=== PATIENT | female | born 1960 | race Caucasian/White ===

== ENCOUNTER → 2020-11-04 | Outpatient (CLI) | payer BC, MEDICARE ==
[2020-11-04 15:50] LABS: Gliadin AB IgA, Deaminated NEGATIVE (NEGATIVE); Gliadin AB IgA, Unit 0.5 U/mL
[2020-11-04 15:51] LABS: Gliadin AB IgG, Deaminated NEGATIVE (NEGATIVE)
== END | disposition home or self-care (01) ==
LOC: LABWHC1 09:28
PROVIDERS: ATTEND Nurse Practitioner
DX: R19.7 Diarrhea, unspecified (principal)
CPT/HCPCS: 36415; 83516

== ENCOUNTER 2022-06-06 09:51 | Day surgery (SDC) | payer BC, MEDICARE ==
[2022-06-04 14:33] VITALS: BMI 20.5
[~2022-06-06 09:51] MED LIST: LACTATED RINGERS 1,000 ML IV SCH
[2022-06-06 10:35] VITALS: TEMP 97.8
[2022-06-06] MEDS ORDERED: PROPOFOL 10 MG/ML 20 ML VIAL IV ONE (12:08)
--- NOTE | 2022-06-06 12:22 | P.PCN ---
Date of Procedure: 06/06/22 Procedure(s) Performed: BRIEF HISTORY: Patient is a 62-year-old pleasant female scheduled for an elective colonoscopy as a part of evaluation of prior history of colon polyps. Last colonoscopy was 5 years ago. She also has been complaining of chronic diarrhea for the last 6 months before this with the bowel movements daily. PROCEDURE PERFORMED: Colonoscopy with random biopsies. PREOPERATIVE DIAGNOSIS: History Of colon polyps and chronic diarrhea. IV sedation per Anesthesia. PROCEDURE: After informed consent was obtained, the patient, was brought into the endoscopy unit. IV sedation was administered by Anesthesia under continuous monitoring. Digital rectal examination was normal. Initially the Olympus CF-160 flexible video colonoscope was then inserted in the rectum, gradually advanced into the cecum without any difficulty. Careful examination was performed as the scope was gradually being withdrawn. Ileocecal valve and the appendiceal orifice were visualized and appeared normal. Prep was excellent. Mucosa of the cecum, ascending colon, transverse colon, descending colon, sigmoid colon, and rectum appeared normal. At her sigmoid diverticulosis seen. Random biopsies were done from ascending and descending colon to rule out colonoscopy/collagenous colitis. Retroflexion was performed in the rectum and no lesions were seen. The patient tolerated the procedure well. IMPRESSION: Normal-appearing colon from rectum to cecum no evidence of colitis or colorectal neoplasia . Scattered sigmoid diverticulosis RECOMMENDATIONS: Findings of this examination were discussed with the patient is well as her family. She was advised to follow with the biopsy results and have a repeat screening colonoscopy in 10 years. Continue with [id number] antidiarrheal as needed for the chronic diarrhea..
[2022-06-06 12:53] VITALS: BP 134/73; PULSE 73; RESP 16
== END 2022-06-06 13:13 | disposition home or self-care (01) ==
LOC: ORWHC2ENDO 09:51
PROVIDERS: ATTEND Internal Medicine Gastroenterology
DX: Z12.11 Encounter for screening for malignant neoplasm of colon (principal); R19.7 Diarrhea, unspecified; I10 Essential (primary) hypertension; E78.5 Hyperlipidemia, unspecified; F12.10 Cannabis abuse, uncomplicated; K21.9 Gastro-esophageal reflux disease without esophagitis; Z79.899 Other long term (current) drug therapy; Z86.010 Personal history of colon polyps; Z79.82 Long term (current) use of aspirin; Z88.6 Allergy status to analgesic agent
CPT/HCPCS: 88305; 45380; J2704

== ENCOUNTER → 2023-10-22 | Outpatient (CLI) | payer MEDICARE, OTHER ==
--- NOTE | 2023-10-24 09:28 | MM ---
Reason for Exam: Screening (asymptomatic). Last mammogram was performed 1 year(s) and 6 month(s) ago. Patient History: Menarche at age 10. First Full-Term at age 19. Postmenopausal. Maternal grandmother had breast cancer, age 65. Risk Values: Danya 5 year model risk: 1.5%. NCI Lifetime model risk: 5.6%. Prior Study Comparison: 08/26/2020 Bilateral Screening Mammogram, [facility]. 09/01/2020 Left Diagnostic Mammogram, [facility]. 04/20/2021 Left Diagnostic Mammogram, [facility]. 05/01/2022 Bilateral Screening Mammogram, [facility]. Tissue Density: The breasts are heterogeneously dense, which may obscure small masses. Findings: Analyzed By CAD. Increasing microcalcifications are noted in the upper outer quadrant right breast. Spot magnification compression views are recommended. No suspicious calcifications left breast. No mass densities or spiculation seen. Overall Assessment: Incomplete: need additional imaging evaluation, BI-RAD 0 Management: Diagnostic Mammogram of the right breast. . Patient should continue monthly self-breast exams. A clinical breast exam by your physician is recommended on an annual basis. This exam should not preclude additional follow-up of suspicious palpable abnormalities. Note on Danya scores and lifetime risk: 1. A Danya score greater than 3% is considered moderate risk. If this is the case, consider specialist referral to assess eligibility for a risk reducing agent. 2. If overall lifetime risk for the development of breast cancer is 20% or higher, the patient may qualify for future screening with alternating mammogram and breast MRI. Electronically signed and approved by: Minh Andino M.D. Radiologis
== END | disposition home or self-care (01) ==
LOC: RADMAMWWP 15:06
PROVIDERS: ATTEND Family Medicine
DX: Z12.31 Encounter for screening mammogram for malignant neoplasm of breast (principal); Z80.3 Family history of malignant neoplasm of breast; Z78.0 Asymptomatic menopausal state
CPT/HCPCS: 77063; 77067

== ENCOUNTER → 2023-10-29 | Outpatient (CLI) | payer MEDICARE, OTHER ==
--- NOTE | 2023-10-29 10:42 | MM ---
Reason for Exam: Additional evaluation requested from abnormal screening. Last screening mammogram was performed less than 1 month ago. Patient History: Menarche at age 10. First Full-Term at age 19. Postmenopausal. Maternal grandmother had breast cancer, age 65. Risk Values: Danya 5 year model risk: 1.5%. NCI Lifetime model risk: 5.6%. Prior Study Comparison: 08/26/2020 Bilateral Screening Mammogram, [facility]. 09/01/2020 Left Diagnostic Mammogram, [facility]. 04/20/2021 Left Diagnostic Mammogram, [facility]. 05/01/2022 Bilateral Screening Mammogram, [facility]. 10/22/2023 Bilateral MG 3D screening mammo w/cad, [facility]. Tissue Density: Right: There are scattered areas of fibroglandular density. Findings: Analyzed By CAD. On magnification views, the upper outer quadrant microcalcifications are very faint and punctate. A benign etiology is favored. 6 month follow-up recommended. Overall Assessment: Probably benign, BI-RAD 3 Management: Diagnostic Mammogram of the right breast in 6 months. . Results were given to the patient verbally at the time of exam. Patient should continue monthly self-breast exams. A clinical breast exam by your physician is recommended on an annual basis. This exam should not preclude additional follow-up of suspicious palpable abnormalities. Note on Danya scores and lifetime risk: 1. A Danya score greater than 3% is considered moderate risk. If this is the case, consider specialist referral to assess eligibility for a risk reducing agent. 2. If overall lifetime risk for the development of breast cancer is 20% or higher, the patient may qualify for future screening with alternating mammogram and breast MRI. Electronically signed and approved by: Fabien Kidd M.D. Radiologist
== END | disposition home or self-care (01) ==
LOC: RADMAMWWP 09:55
PROVIDERS: ATTEND Family Medicine
DX: R92.321 Mammographic fibroglandular density, right breast (principal); Z78.0 Asymptomatic menopausal state; Z80.3 Family history of malignant neoplasm of breast
CPT/HCPCS: 77065; G0279; 77061

== ENCOUNTER → 2024-05-20 | Outpatient (CLI) | payer MEDICARE, OTHER ==
--- NOTE | 2024-05-20 10:46 | MM ---
Reason for Exam: Follow-up at short interval from prior study. Last screening mammogram was performed 7 month(s) ago. Patient History: Menarche at age 10. First Full-Term at age 19. Postmenopausal. Maternal grandmother had breast cancer, age 65. Risk Values: Danya 5 year model risk: 1.5%. NCI Lifetime model risk: 5.4%. Prior Study Comparison: 05/01/2022 Bilateral Screening Mammogram, [facility]. 10/22/2023 Bilateral MG 3D screening mammo w/cad, [facility]. 10/29/2023 Right MG 3D work up w/cad RT, [facility]. Tissue Density: Right: The breasts are heterogeneously dense, which may obscure small masses. Findings: Analyzed By CAD. Stable scattered punctate calcifications without suspicious cluster at this time. Continued six-month follow-up is advised. Overall Assessment: Probably benign, BI-RAD 3 Management: Diagnostic Mammogram of both breasts in 6 months. . Results were given to the patient verbally at the time of exam. Patient should continue monthly self-breast exams. A clinical breast exam by your physician is recommended on an annual basis. This exam should not preclude additional follow-up of suspicious palpable abnormalities. Note on Danya scores and lifetime risk: 1. A Danya score greater than 3% is considered moderate risk. If this is the case, consider specialist referral to assess eligibility for a risk reducing agent. 2. If overall lifetime risk for the development of breast cancer is 20% or higher, the patient may qualify for future screening with alternating mammogram and breast MRI. [facility], , 05/20/2024 10:40 AM. Electronically signed and approved by: Minh Andino M.D. Radiologis
== END | disposition home or self-care (01) ==
LOC: RADMAMWWP 10:19
PROVIDERS: ATTEND Family Medicine
DX: R92.8 Other abnormal and inconclusive findings on diagnostic imaging of breast
CPT/HCPCS: 77061; 77065

== ENCOUNTER → 2024-09-02 | Outpatient (CLI) | payer MEDICARE, OTHER ==
--- NOTE | 2024-09-02 12:15 | MR ---
EXAMINATION TYPE: MR knee LT wo con DATE OF EXAM: 09/02/2024 COMPARISON: Outside left knee x-ray August 27, 2024 HISTORY: Left knee pain x 3 yrs, no trauma. TECHNIQUE: Multiplanar, multisequence images of the knee is performed without IV contrast. FINDINGS: MEDIAL MENISCUS: Anterior and posterior horns are intact without tear. LATERAL MENISCUS: Anterior and posterior horns are intact without tear. CRUCIATE LIGAMENTS: The anterior and posterior cruciate ligaments are intact and unremarkable. COLLATERAL LIGAMENTS: The medial collateral ligament and lateral collateral ligament complex are inta ct and unremarkable. EXTENSOR MECHANISM: Visualized quadriceps and patellar tendons are intact. Increased edema in the ant erior suprapatellar region just deep to the distal quadriceps tendon. Some increased signal is seen i n the deep aspect of the lateral portion of the distal quadriceps tendon. EFFUSION: No significant suprapatellar joint effusion. POPLITEAL CYST: Tiny popliteal/manzo cyst. TRICOMPARTMENT SPACES: Moderate to severe narrowing and spurring at the level of the patellofemoral c ompartment. CARTILAGE: Significant chondral malacia patella with areas of full-thickness loss identified particul néstor inferiorly. BONE MARROW SIGNAL: Heterogeneous diminished T1 and increased T2 signal along with cystic change invo lving the inferior aspect of the posterior patellar pole. OTHER: No additional significant abnormality is appreciated. IMPRESSION: 1. Asymmetric severe patellofemoral joint arthropathy as detailed above. 2. 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 There is tendinosis /partial tearing of the posterior deep fibers of the distal quadriceps tendon. 3. No meniscal tear is seen. [facility], , 09/02/2024 12:12 PM
== END | disposition home or self-care (01) ==
LOC: RADMRIMAIN 10:52
PROVIDERS: ATTEND Orthopaedic Surgery
DX: M71.22 Synovial cyst of popliteal space [Baker], left knee (principal); M12.862 Other specific arthropathies, not elsewhere classified, left knee

== ENCOUNTER 2024-10-15 09:34 | Day surgery (SDC) | payer MEDICARE, OTHER ==
--- NOTE | 2024-10-14 21:14 | HP ---
HISTORY AND PHYSICAL DATE OF SURGERY: 10/15/2024. HISTORY OF PRESENT ILLNESS: Dorie Camacho is a 64-year-old patient seen with progressive left knee pain. We discussed the options regarding treatment. She elected to proceed with left knee arthroscopy. Consent is obtained. PAST MEDICAL HISTORY: Hypertension, gastroesophageal reflux disease, hyperlipidemia. SURGICAL HISTORY: Tonsillectomy, cholecystectomy, tubal ligation. DAILY MEDICATIONS: 1. Amlodipine. 2. Aspirin. 3. Omeprazole. 4. Rosuvastatin. ALLERGIES: None. SOCIAL HISTORY: She denies tobacco use. PHYSICAL EVALUATION OF THE LEFT KNEE: Her range of motion is -2/3 to 120 degrees. Mild effusion. Tenderness along the medial and lateral joint line. Has positive medial Daniella's. Positive lateral Daniella's. Ligaments stable. Hip rotation is without pain. Distal neurovascular exam is intact. Left knee radiographs reveal mild osteoarthritis of the left knee. MRI revealed a Foley cyst, fat pad impingement, and patellofemoral compartment osteoarthritis. IMPRESSION: 1. Internal derangement of left knee with osteochondral tear versus meniscal tear. 2. Hypertension. 3. Hyperlipidemia. PLAN: Left knee arthroscopy with partial meniscectomy versus chondroplasty and debridement. MMODL / IJN: [id number] /
[~2024-10-15 09:34] MED LIST changes: +HYDROmorphone 0.5 MG/0.5 ML SYRINGE IVP PRN; -LACTATED RINGERS 1,000 ML IV SCH; +LIDOCAINE 1% (10MG/ML) FOR IV START INTRADERMA PRN; +MIDAZOLAM 2 MG/2 ML VIAL IV PRN; +fentaNYL (PF) 50 MCG/ML 2 ML AMP IVP PRN
[2024-10-15] MEDS: IV FLUID CONTINUATION 1,000 ML IV ONE (10:07)
[2024-10-15] MEDS: LACTATED RINGERS 1,000 ML IV SCH (10:21)
[2024-10-15] MEDS: DEXAMETHASONE SOD PHOSPHATE 4 MG/ML 1 ML VIAL IV ONE (10:21)
[2024-10-15] MEDS: ONDANSETRON 4 MG/2 ML VIAL IVP ONE (10:22)
[2024-10-15] MEDS ORDERED: LIDOCAINE 1% INJ 10MG/ML (20 ML MDV) ONE (10:44)
[2024-10-15] MEDS ORDERED: MIDAZOLAM 2 MG/2 ML VIAL ONE (10:44)
[2024-10-15] MEDS ORDERED: PROPOFOL 10 MG/ML 20 ML VIAL IV ONE (10:44)
[2024-10-15] MEDS ORDERED: fentaNYL (PF) 50 MCG/ML 2 ML AMP ONE (10:44)
[2024-10-15] MEDS: BUPIVACAINE (PF) 0.25% 30 ML VIAL SQ ONE (11:09)
--- NOTE | 2024-10-15 11:30 | P.OP ---
Date of Procedure: 10/15/24 Preoperative Diagnosis: Internal derangement left knee Postoperative Diagnosis: 1. Tear medial and lateral meniscus left knee 2. Reactive synovitis medial, lateral and suprapatellar compartments left knee 3. 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 Grade IV chondromalacia patella left knee Procedure(s) Performed: 1. Arthroscopic partial medial and lateral meniscectomy left knee 2. Arthroscopic partial synovectomy medial, lateral and suprapatellar compartments left knee 3. Arthroscopic chondroplasty medial femoral condyle left knee Anesthesia: EVELINA, local Surgeon: Hua Newsome Estimated Blood Loss (ml): 4 Pathology: none sent Condition: stable Disposition: PACU Indications for Procedure: 64-year-old patient seen with progressive left knee pain. After having treatment options discussed, she elected to proceed with left knee arthroscopy. Operative Findings: See description of procedure Description of Procedure: Patient was taken to the operative suite. Patient underwent a general anesthetic by the department of anesthesia. Patient was given preoperative antibiotics. The left lower extremity was placed in a well-padded arthroscopic leg roth. The left leg was prepped and draped in the normal sterile orthopedic fashion. A lateral parapatellar and suprapatellar incision was made. Trochars were inserted. Arthroscopy was initiated. Suprapatellar pouch revealed diffuse thick reactive synovitis. The patellofemoral joint appeared to articulate congruently. There was grade IV chondromalacia of the patella with areas of exposed bone. There were no osteochondral flap tear present. There was grade III chondromalacia of the femoral sulcus with no tears.. The scope was guided into the medial gutter. No loose bodies or plica were identified. The scope was then guided into the medial compartment. A medial parapatellar incision was made. Trocar inserted followed by probe. There was a radial tear posterior horn medial meniscus. There were grade II/III chondromalacia changes along the medial femoral condyle with some osteochondral flap tears. There was some thick reactive synovitis anteriorly. I performed a partial medial meniscectomy getting down to stable meniscal tissue. I performed a chondroplasty of the medial femoral condyle getting down to stable osteochondral tissue. I performed a partial synovectomy decompressing the thick reactive synovitis anteriorly. The residual meniscus was stable. The residual osteochondral surface was stable. There was good decompression of the synovitis. Scope and probe were then guided into the intercondylar notch. Cruciates were identified, probed and found to be stable. The scope and probe were then guided into lateral compartment. There was a tear involving the mid bilateral meniscus. There were grade I chondromalacia changes lateral compartment with no tears. There was some thick reactive situs anteriorly. I performed a partial lateral meniscectomy getting down to stable meniscal tissue. I performed a partial synovectomy decompressing the reactive synovitis. The residual meniscus was stable. There was good decompression of the synovitis. The scope was in guided back into the suprapatellar compartment. I introduced a motorized shaver into the suprapatellar compartment. I debrided some piecemeal fragments of meniscus that I encountered. I performed a partial synovectomy. The shaver was now removed. There was good decompression of the synovitis. I took one more look around the entire knee, no residual debris. Instruments were now removed from the joint. The joint was infiltrated with .25% Marcaine. Steri-Strips were applied to the portal sites. Sterile dressings were applied. The patient was placed into a SHAHBAZ hose. No tourniquet was utilized. The patient was awakened, transferred to a bed and taken to recovery stable satisfactory condition.
[2024-10-15 11:33] VITALS: TEMP 97
[2024-10-15] MEDS: HYDROcodone/APAP 5-325MG 1 EACH TAB PO STA (12:20)
[2024-10-15 12:22] VITALS: RESP 18
[2024-10-15 13:00] VITALS: BP 148/86; PULSE 66
== END 2024-10-15 13:18 | disposition home or self-care (01) ==
LOC: OR 09:34
PROVIDERS: ATTEND Orthopaedic Surgery
DX: S83.242A Other tear of medial meniscus, current injury, left knee, initial encounter (principal); S83.282A Other tear of lateral meniscus, current injury, left knee, initial encounter; M17.12 Unilateral primary osteoarthritis, left knee; M94.262 Chondromalacia, left knee; M65.862 Other synovitis and tenosynovitis, left lower leg; I10 Essential (primary) hypertension; E78.5 Hyperlipidemia, unspecified; K21.9 Gastro-esophageal reflux disease without esophagitis; R94.31 Abnormal electrocardiogram [ECG] [EKG]; Z79.82 Long term (current) use of aspirin; Z79.899 Other long term (current) drug therapy; Z88.8 Allergy status to other drugs, medicaments and biological substances; X58.XXXA Exposure to other specified factors, initial encounter
CPT/HCPCS: 29880; 29876; J2250; J1100; J0690; J2405; J2003; J3010; J2704; J0665

== ENCOUNTER → 2024-11-19 | Outpatient (CLI) | payer MEDICARE, OTHER ==
--- NOTE | 2024-11-19 13:22 | MM ---
Reason for Exam: Screening (asymptomatic). Last mammogram was performed 1 year(s) and 1 month(s) ago. Patient History: Menarche at age 10. First Full-Term at age 19. Postmenopausal. Maternal grandmother had breast cancer, age 65. Risk Values: Danya 5 year model risk: 1.5%. NCI Lifetime model risk: 5.4%. Prior Study Comparison: 08/26/2020 Bilateral Screening Mammogram, [facility] . 09/01/2020 Left Diagnostic Mammogram, [facility] . 04/20/2021 Left Diagnostic Mammogram, [facility] . 05/01/2022 Bilateral Screening Mammogram, [facility] . 10/22/2023 Bilateral MG 3D screening mammo w/cad, [facility]. 10/29/2023 Right MG 3D work up w/cad RT, [facility]. 05/20/2024 Right MG 3D diag mammo w/cad RT, [facility]. Tissue Density: There are scattered areas of fibroglandular density. Findings: Analyzed By CAD. There is no suspicious group of microcalcifications or new suspicious mass in either breast. Overall Assessment: Benign, BI-RAD 2 Management: Screening Mammogram of both breasts in 1 year. . Patient should continue monthly self-breast exams. A clinical breast exam by your physician is recommended on an annual basis. This exam should not preclude additional follow-up of suspicious palpable abnormalities. Note on Danya scores and lifetime risk: 1. A Danya score greater than 3% is considered moderate risk. If this is the case, consider specialist referral to assess eligibility for a risk reducing agent. 2. If overall lifetime risk for the development of breast cancer is 20% or higher, the patient may qualify for future screening with alternating mammogram and breast MRI. [facility], , 11/19/2024 1:19 PM. Electronically signed and approved by: Minh Andino M.D. Radiologis
== END | disposition home or self-care (01) ==
LOC: RADMAMWWP 12:15
PROVIDERS: ATTEND Family Medicine
DX: Z12.31 Encounter for screening mammogram for malignant neoplasm of breast (principal); R92.323 Mammographic fibroglandular density, bilateral breasts; Z78.0 Asymptomatic menopausal state; Z80.3 Family history of malignant neoplasm of breast
CPT/HCPCS: 77063; 77067